=== PATIENT | male | born 1960 ===

== ENCOUNTER 2024-06-29 13:01 | Inpatient (IN) | payer MEDICARE ==
[2024-06-29] MEDS: ONDANSETRON 4 MG/2 ML VIAL IVP STA (14:08)
[2024-06-29] MEDS: PANTOPRAZOLE 40 MG/10 ML VIAL IVP STA (14:08)
[2024-06-29] MEDS: SODIUM CHLORIDE 0.9% 1,000 ML IV STA (14:08)
[2024-06-29] MEDS: MORPHINE SULFATE 4 MG/ML SYRINGE IVP STA (14:09)
[2024-06-29 14:21] LABS: Basophils % (A) 0 %; Eosinophils % (A) 0 %; HCT 40.8 % (39.0-53.0); HGB 13.8 gm/dL (13.0-17.5); Lymphocytes # (A) 0.9 k/uL (1.0-4.8); Lymphocytes % (A) 8 %; MCH 31.4 pg (25.0-35.0); MCV 92.4 fL (80.0-100.0); Mean Platelet Volume 7.4; Monocytes # (A) 0.7 k/uL (0-1.0); Monocytes % (A) 6 %; Neutrophils # (A) 8.9 k/uL (1.3-7.7); Neutrophils % (A) 84 %; Platelet Count 184 k/uL (150-450); RBC 4.41 m/uL (4.30-5.90); RDW 13.3 % (11.5-15.5); WBC 10.7 k/uL (3.8-10.6)
[2024-06-29 14:34] LABS: ALT 45 U/L (4-49); African American GFR (CKD) >90 (>60 ml/min/1.73 sqM); Amylase 82 U/L (30-110); Anion Gap 14 mmol/L; Blood Urea Nitrogen 16 mg/dL (9-20); Calcium 8.6 mg/dL (8.4-10.2); Carbon Dioxide 20 mmol/L (22-30); Chloride 103 mmol/L (98-107); Glucose 123 mg/dL (74-99); Lipase 83 U/L (23-300); Non-African American GFR(CKD) >90 (>60 ml/min/1.73 sqM); Sodium 137 mmol/L (137-145); Total Bilirubin 1.5 mg/dL (0.2-1.3); Total Protein 7.8 g/dL (6.3-8.2)
[2024-06-29 14:38] LABS: AST 40 U/L (17-59); Albumin 4.4 g/dL (3.5-5.0); Alkaline Phosphatase 54 U/L (38-126); Potassium 4.3 mmol/L (3.5-5.1)
[2024-06-29 14:39] LABS: Prothrombin Time 10.7 sec (10.0-12.5)
[2024-06-29] MEDS: HYDROmorphone 1 MG/ML 1 ML SYRINGE IVP STA (15:49)
--- NOTE | 2024-06-29 16:07 | ED ---
General Adult HPI - General Source: family, RN notes reviewed, old records reviewed Mode of arrival: ambulatory Limitations: language barrier <Kelvin Ahuja - Last Filed: 06/29/24 16:10> <Peyton Lino - Last Filed: 06/29/24 18:45> - General Chief complaint: Nausea/Vomiting/Diarrhea Stated complaint: back/abd pain Time Seen by Provider: 06/29/24 13:30 - History of Present Illness Initial comments: Patient is a 63-year-old male who presents emergency department complaining of nausea and vomiting as well as abdominal pain. Symptoms have been ongoing for multiple days. Patient is primarily Polish-speaking and translator and interpreter is his daughter. Was seen at [facility] and received a thorough workup yesterday and told he may have some form of cancer but became concerned as he is still having abdominal pain today. Denies nausea or vomiting or diarrhea. Presents for further evaluation at this time. Originally did have back pain across the shoulder blades but that is resolved and is only having right sided abdominal discomfort. Symptoms are improved compared to yesterday. (Kelvin Ahuja) - Related Data Allergies Allergy/AdvReac Type Severity Reaction Status Date / Time No Known Allergies Allergy Verified 06/29/24 13:05 Review of Systems ROS Other: All systems not noted in ROS Statement are negative. <Kelvin Ahuja - Last Filed: 06/29/24 16:10> ROS Other: All systems not noted in ROS Statement are negative. <Peyton Lino - Last Filed: 06/29/24 18:45> ROS Statement: Those systems with pertinent positive or pertinent negative responses have been documented in the HPI. Review of Systems: CONST: Denies fever EYES: Denies blurry vision ENT: Denies nasal congestion C/V: Denies Chest pain RESP: Denies shortness of breath GI: Endorses abdominal pain : Denies dysuria SKIN: Denies rash. MSK: Denies joint pain. NEURO: Denies headache (Kelvin Ahuja) Past Medical History Smoking Status: Never smoker Past Alcohol Use History: Occasional Past Drug Use History: None Reported <Kelvin Ahuja - Last Filed: 06/29/24 16:10> General Exam Limitations: language barrier <Kelvin Ahuja - Last Filed: 06/29/24 16:10> Course Vital Signs 06/29/24 15:55 Pulse Rate 83 Respiratory 18 Rate Blood Pressure 130/80 O2 Sat by Pulse 95 Oximetry Medical Decision Making - Lab Data Result diagrams: 06/29/24 13:46 06/29/24 13:46 - EKG Data -: EKG Interpreted by Me <Kelvin Ahuja - Last Filed: 06/29/24 16:10> - Lab Data Result diagrams: 06/29/24 13:46 06/29/24 13:46 <Peyton Lino Noemi - Last Filed: 06/29/24 18:45> - Medical Decision Making Was pt. sent in by a medical professional or institution (, PA, INDUSTRIAL ENG, urgent care, hospital, or group home...) When possible be specific @ -No Did you speak to anyone other than the patient for history (EMS, parent, family, police, friend...)? What history was obtained from this source @ -Patient's daughter and family primary retirement officer for the patient. Did you review nursing and triage notes (agree or disagree)? Why? @ -I reviewed and agree with nursing and triage notes Were old charts reviewed (outside hosp., previous admission, EMS record, old EKG, old radiological studies, urgent care reports/EKG's, group home records)? Report findings @ -Reviewed paperwork and records from [facility] from June 28, 2020 for which we obtained which showed CT angiogram negative for any aortic injury or acute abdominal process. Patient does have multiple pulmonary nodules with concern for malignancy. Reviewed EKG and compared to the today's which revealed no obvious dynamic changes. Differential Diagnosis (chest pain, altered mental status, abdominal pain women, abdominal pain men, vaginal bleeding, weakness, fever, dyspnea, syncope, headache, dizziness, GI bleed, back pain, seizure, CVA, palpatations, mental health, musculoskeletal)? @ -Differential Abdominal Pain Men: Appendicitis, cholecystitis, diverticulosis, ischemic bowel, pancreatitis, hepatitis, UTI, gastroenteritis, AAA, incarcerated hernia, bowel obstruction, constipation, inflammatory bowel, hepatitis, peptic ulcer disease, splenic inf arction, perforated viscus, testicular torsion, this is not meant to be an all- inclusive list EKG interpreted by me (3pts min.). @ -As above X-rays interpreted by me (1pt min.). @ -Pending CT interpreted by me (1pt min.). @ -None done U/S interpreted by me (1pt. min.). @ -Pending What testing was considered but not performed or refused? (CT, X-rays, U/S, labs)? Why? @ -None What meds were considered but not given or refused? Why? @ -None Did you discuss the management of the patient with other professionals (professionals i.e. DrAddie, PA, INDUSTRIAL ENG, lab, RT, psych nurse, social service assistant, strip polisher, te acher, patient transport officer, manager of case)? Give summary @ -No Was smoking cessation discussed for >3mins.? @ -No Was critical care preformed (if so, how long)? @ -No Were there social determinants of health that impacted care today? How? (Homelessness, low income, unemployed, alcoholism, drug addiction, transportation, low edu. Level, literacy, decrease access to med. care, custodial, rehab)? @ -No Was there de-escalation of care discussed even if they declined (Discuss DNR or withdrawal of care, Hospice)? DNR status @ -No What co-morbidities impacted this encounter? (DM, HTN, Smoking, COPD, CAD, C ancer, CVA, ARF, Chemo, Hep., AIDS, mental health diagnosis, sleep apnea, morbid obesity)? @ -Cardiac bypass Was patient admitted / discharged? Hospital course, mention meds given and route, prescriptions, significant lab abnormalities, going to OR and other pertinent info. @ -Patient presents with abdominal pain. Has been ongoing for 4 days. Was seen yesterday at [facility] we will obtain transfer paperwork for evaluation. CT a of the aorta was obtained at that time showed no obvious a ortic injury. Did show multiple pulmonary nodules with concern for malignancy. We will repeat abdominal laboratory studies as well as ultrasound of gallbladder and atypical ACS evaluation, however I do not believe that CT imaging is required at this time as he just received it yesterday and his symptoms are improved. He was in agreement this plan. Vitals are within acceptable limits. He will be given IV fluids, analgesia, Zofran, Protonix. EKG shows no signs of acute ischemia. Laboratory studies are remarkable for slight lactic acidosis of 2.6 likely secondary to dehydration as well as a undetectable troponin. Imaging is pending at this time. Patient signed out to Dr. Lino pending results of imaging. Undiagnosed new problem with uncertain prognosis? @ -No Drug Therapy requiring intensive monitoring for toxicity (Heparin, Nitro, Insulin, Cardizem)? @ -No Were any procedures done? @ -No (Kelvin Ahuja) Was patient admitted / discharged? Hospital course, mention meds given and route, prescriptions, significant lab abnormalities, going to OR and other pertinent info. @ -Patient was signed out to me pending ultrasound. Ultrasound does demonstr ate signs concerning for acalculous cholecystitis. This is discussed with the patient. He is finally comfortable after the dose of Dilaudid. I did discuss the case with Dr. Cherry. Patient will be admitted for observation with antibiotics. Patient was agreeable to this. Admitted to the floor in stable condition Undiagnosed new problem with uncertain prognosis? @ -Yes Drug Therapy requiring intensive monitoring for toxicity (Heparin, Nitro, Insulin, Cardizem)? @ -No Were any procedures done? @ -No Diagnosis/symptom? @ -Acute epigastric abdominal pain, acute cholecystitis Acute, or Chronic, or Acute on Chronic? @ -Acute Uncomplicated (without systemic symptoms) or Complicated (systemic symptoms)? @ -Complicated Side effects of treatment? @ -No Exacerbation, Progression, or Severe Exacerbation? @ -No Poses a threat to life or bodily function? How? (Chest pain, [place], [place], pneumonia, PE, COPD, DKA, ARF, appy, cholecystitis, CVA, Diverticulitis, Homicidal, Suicidal, threat to staff... and all critical care pts) @ -No (Peyton Lino) - Lab Data Lab Results 06/29/24 06/29/24 06/29/24 Range/Units 13:46 13:46 13:46 WBC 10.7 H (3.8-10.6) k/uL RBC 4.41 (4.30-5.90) m/uL Hgb 13.8 (13.0-17.5) gm/dL Hct 40.8 (39.0-53.0) % MCV 92.4 (80.0-100.0) fL MCH 31.4 (25.0-35.0) pg MCHC 34.0 (31.0-37.0) g/dL RDW 13.3 (11.5-15.5) % Plt Count 184 (150-450) k/uL MPV 7.4 Neutrophils % 84 % Lymphocytes % 8 % Monocytes % 6 % Eosinophils % 0 % Basophils % 0 % Neutrophils # 8.9 H (1.3-7.7) k/uL Lymphocytes # 0.9 L (1.0-4.8) k/uL Monocytes # 0.7 (0-1.0) k/uL Eosinophils # 0.0 (0-0.7) k/uL Basophils # 0.0 (0-0.2) k/uL PT 10.7 (10.0-12.5) sec INR 1.0 (<1.2) APTT 26.0 (22.0-30.0) sec Sodium 137 (137-145) mmol/L Potassium 4.3 (3.5-5.1) mmol/L Chloride 103 (98-107) mmol/L Carbon Dioxide 20 L (22-30) mmol/L Anion Gap 14 mmol/L BUN 16 (9-20) mg/dL Creatinine 0.85 (0.66-1.25) mg/dL Est GFR (CKD-EPI)AfAm >90 (>60 ml/min/1.73 sqM) Est GFR (CKD-EPI)NonAf >90 (>60 ml/min/1.73 sqM) Glucose 123 H (74-99) mg/dL Lactic Ac Sepsis Rflx Plasma Lactic Acid Jesus Alberto (0.7-2.0) mmol/L Calcium 8.6 (8.4-10.2) mg/dL Total Bilirubin 1.5 H (0.2-1.3) mg/dL AST 40 (17-59) U/L ALT 45 (4-49) U/L Alkaline Phosphatase 54 (38-126) U/L Troponin I (0.000-0.034) ng/mL Total Protein 7.8 (6.3-8.2) g/dL Albumin 4.4 (3.5-5.0) g/dL Amylase 82 (30-110) U/L Lipase 83 (23-300) U/L 06/29/24 06/29/24 06/29/24 Range/Units 13:46 13:46 15:51 WBC (3.8-10.6) k/uL RBC (4.30-5.90) m/uL Hgb (13.0-17.5) gm/dL Hct (39.0-53.0) % MCV (80.0-100.0) fL MCH (25.0-35.0) pg MCHC (31.0-37.0) g/dL RDW (11.5-15.5) % Plt Count (150-450) k/uL MPV Neutrophils % % Lymphocytes % % Monocytes % % Eosinophils % % Basophils % % Neutrophils # (1.3-7.7) k/uL Lymphocytes # (1.0-4.8) k/uL Monocytes # (0-1.0) k/uL Eosinophils # (0-0.7) k/uL Basophils # (0-0.2) k/uL PT (10.0-12.5) sec INR (<1.2) APTT (22.0-30.0) sec Sodium (137-145) mmol/L Potassium (3.5-5.1) mmol/L Chloride (98-107) mmol/L Carbon Dioxide (22-30) mmol/L Anion Gap mmol/L BUN (9-20) mg/dL Creatinine (0.66-1.25) mg/dL Est GFR (CKD-EPI)AfAm (>60 ml/min/1.73 sqM) Est GFR (CKD-EPI)NonAf (>60 ml/min/1.73 sqM) Glucose (74-99) mg/dL Lactic Ac Sepsis Rflx Y Plasma Lactic Acid Jesus Alberto 2.6 H* (0.7-2.0) mmol/L Calcium (8.4-10.2) mg/dL Total Bilirubin (0.2-1.3) mg/dL AST (17-59) U/L ALT (4-49) U/L Alkaline Phosphatase (38-126) U/L Troponin I <0.012 (0.000-0.034) ng/mL Total Protein (6.3-8.2) g/dL Albumin (3.5-5.0) g/dL Amylase (30-110) U/L Lipase (23-300) U/L - EKG Data EKG Comments: 12-lead Electrocardiogram Interpretation Note EKG was reviewed and interpreted by myself. 12-lead ECG performed at 1346 is interpreted by me as revealing normal sinus rhythm at a rate of 74 beats per minute. [place] is normal. OH interval is 142 ms, QRS duration 79 ms, QTc is 3 to 93 ms.. There were no ST or T wave abnormalities to suggest myocardial ischemia or injury. R wave progression across the precordium was satisfactory. By my interpretation this EKG is non-diagnostic for acute ischemia. Compared today's EKG with EKG from [facility] from 06/28/2024 with no obvious acute dynamic changes. (Kelvin Ahuja) Disposition <Kelvin Ahuja - Last Filed: 06/29/24 16:10> Is patient prescribed a controlled substance at d/c from ED?: No Time of Disposition: 18:39 Decision to Admit Reason: Admit from EC Decision Date: 06/29/24 Decision Time: 18:39 <Peyton Lino - Last Filed: 06/29/24 18:45> Clinical Impression: Cholecystitis, Epigastric pain Disposition: ADMITTED IP TO THIS HOSP Condition: Stable Referrals: RONALD CANCINO MD [Primary Care Provider] - 1-2 days
--- NOTE | 2024-06-29 16:31 | US ---
EXAMINATION TYPE: US gallbladder DATE OF EXAM: 06/29/2024 COMPARISON: NONE CLINICAL INDICATION: Male, 63 years old with history of abd pain; Pain TECHNIQUE: Grayscale and color Doppler imaging of the right upper quadrant was performed. FINDINGS: EXAM MEASUREMENTS: Liver Length: 14.8 cm Gallbladder Wall: 0.2 cm CBD: 0.5 cm Right Kidney: 9.1 x 4.6 x 5.3 cm VP DIRECTOR OF FINANCE NOTES:Suboptimal due to bowel gas Pancreas: Obscured by bowel gas Liver: Scanned through ribs. Echogenic in appearance. Hypoechoic area seen adjacent to GB = 2.3 x 1.1 cm Gallbladder: Enlarged in size - 11.2 cm. No stone visualized at time of scan. Evidence for sonographic Rowley's sign: neg CBD: limited visualization, small portion seen due to bowel gas Right Kidney: No hydronephrosis or masses seen IMPRESSION: 1. Distended gallbladder with small focus of pericholecystic fluid but no gallstone or wall thickenin g. There is no biliary ductal dilatation. Possible acute acalculous cholecystitis 2. Fatty liver. [facility], , 06/29/2024 4:29 PM
--- NOTE | 2024-06-29 17:52 | XR ---
EXAMINATION TYPE: XR chest 2V DATE OF EXAM: 06/29/2024 CLINICAL HISTORY: Pain TECHNIQUE: Frontal and lateral views of the chest are obtained. COMPARISON: None FINDINGS: There is pulmonary venous congestion with small right-sided pleural effusion and mild cardi omegaly. Correlate for mild congestive failure. The osseous structures are intact. IMPRESSION: There is pulmonary venous congestion with small right-sided pleural effusion and mild ca rdiomegaly. Correlate for mild congestive failure. [facility], , 06/29/2024 5:50 PM
[2024-06-29] MEDS ORDERED: NALOXONE 0.4 MG/ML 1 ML VIAL IV PRN (18:39)
[2024-06-29] MEDS: PIPERACILLIN-TAZOBACTAM 3.375 GM in SODIUM CHLORIDE 0.9% 100 ML IVPB SCH ×2 (19:09→19:11)
[2024-06-29] MEDS: SODIUM CHLORIDE 0.9% 1,000 ML IV SCH (19:09)
[2024-06-30 01:20] LABS: Appearance,Urine Clear (Clear); Bilirubin,Urine Negative (Negative); Blood,Urine Negative (Negative); Color,Urine Yellow; Glucose,Urine (UA) Negative (Negative); Ketones,Urine Negative (Negative); Leukocyte Esterase,Urine Negative (Negative); Nitrite,Urine Negative (Negative); Protein,Urine Trace (Negative); Specific Gravity,Urine 1.031 (1.001-1.035); Urobilinogen,Urine <2.0 mg/dL (<2.0)
[2024-06-30] MEDS: HYDROmorphone 1 MG/ML 1 ML SYRINGE IVP PRN (02:42)
[2024-06-30 09:06] LABS: Blood Urea Nitrogen 16.9 mg/dL (9.0-27.0); Calcium 8.2 mg/dL (8.7-10.3); Carbon Dioxide 21.4 mmol/L (21.6-31.8); Chloride 106 mmol/L (96-109); Glucose 124 mg/dL (70-110); Potassium 3.9 mmol/L (3.5-5.5); Sodium 138 mmol/L (135-145)
[2024-06-30 10:22] LABS: Basophils # (A) 0.03 X 10*3/uL (0.00-0.10); Basophils % (A) 0.2 %; Eosinophils # (A) 0.01 X 10*3/uL (0.04-0.35); Eosinophils % (A) 0.1 %; HCT 38.8 % (39.6-50.0); HGB 12.8 g/dL (13.0-17.0); Lymphocytes # (A) 0.71 X 10*3/uL (0.90-5.00); Lymphocytes % (A) 5.9 %; MCH 31.1 pg (27.0-32.0); MCV 94.2 FL (80.0-97.0); Mean Platelet Volume 10.5 FL (9.5-12.2); Monocytes # (A) 1.32 X 10*3/uL (0.20-1.00); Monocytes % (A) 10.9 %; NRBC Per 100 WBC 0 X 10*3/uL (0.00-0.01); Neutrophils # (A) 9.96 X 10*3/uL (1.80-7.70); Neutrophils % (A) 82.2 %; Platelet Count 158 X 10*3/uL (140-440); RBC 4.12 X 10*6/uL (4.40-5.60); RDW 14.3 % (11.5-14.5); WBC 12.11 X 10*3/uL (4.50-10.00)
--- NOTE | 2024-06-30 11:21 | P.GSHP ---
History of Present Illness H&P Date: 06/30/24 CHIEF COMPLAINT: Abdominal pain HISTORY OF PRESENT ILLNESS: This is a 63-year-old male who presented to the hospital with complaints of nausea vomiting and right upper quadrant abdominal pain for multiple days. Patient is primarily Nepalese-speaking. Patient is tender in the right upper quadrant. He had a gallbladder ultrasound completed that reported distended gallbladder with small pericholecystic fluid and concerns for acalculous cholecystitis. Patient admitted to surgical service. Also note per chart that at [facility] he had received a workup and was told that he had some form of cancer. His last dose of Brilinta was yesterday. Patient denies any chest pain or shortness of breath. PAST MEDICAL HISTORY: Hypertension, hyperlipidemia PAST SURGICAL HISTORY: History of CABG 6 years ago MEDICATIONS: See below ALLERGIES: See below SOCIAL HISTORY: No illicit drug use. REVIEW OF SYSTEMS: CONSTITUTIONAL: Denies fever or chills. HEENT: Denies blurred vision, vision changes, or eye pain. Denies hemoptysis CARDIOVASCULAR: Denies chest pain or pressure. RESPIRATORY: No shortness of breath. GASTROINTESTINAL: See HPI for pertinent findings HEMATOLOGIC: Denies bleeding disorders. GENITOURINARY: Denies any blood in urine or increased urinary frequency. SKIN: Denies pruitis. Denies rash. PHYSICAL EXAM: VITAL SIGNS: Reviewed GENERAL: Well-developed in no acute distress. HEENT: No sclera icterus. Extraocular movements grossly intact. Moist buccal mucosa. Head is atraumatic, normocephalic. No nasal drainage. ABDOMEN: Soft. Nondistended. Tenderness with palpation to the right upper quadrant NEUROLOGIC: Alert and oriented. Cranial nerves II through XII grossly intact. Extremities: No edema LABORATORY DATA: WBC 12.11 Hgb 12.8 platelets 158 Sodium 138 potassium 3.9 creatinine is 1.0 Lactic acid 2.6 down to 1.7 Total bili 1.5 LFTs normal lipase 83 IMAGING: Gallbladder ultrasound reports distended gallbladder with small focus of pericholecystic fluid but no gallstone or wall thickening. There is no biliary ductal dilatation. Possible acute acalculous cholecystitis. Fatty liver. Chest x-ray reports pulmonary venous congestion with small right-sided pleural effusion and mild cardiomegaly. Correlate for mild CHF. ASSESSMENT: 1. Acute acalculous cholecystitis. Gallbladder ultrasound reported distended gallbladder with small focus of pericholecystic fluid PLAN: -Patient scheduled for laparoscopic cholecystectomy today with Dr. Cherry -Keep patient n.p.o. -Continue antibiotics -Continue pain medication and antiemetics -Medicine service consulted for medical management. Discussed case with Dr. Clark, who has cleared patient for surgery and reported patient as moderate risk for surgery. -Continue to hold Brilinta Physician Telegraph Inspector note has been reviewed by physician. Signing provider agrees with the documented findings, assessment, and plan of care. Past Medical History Past Medical History: Hypertension History of Any Multi-Drug Resistant Organisms: None Reported Past Surgical History: Coronary Bypass/CABG Smoking Status: Never smoker Past Alcohol Use History: Occasional Past Drug Use History: None Reported Medications and Allergies Home Medications Medication Instructions Recorded Confirmed Type Atorvastatin [Lipitor] 40 mg PO DAILY 06/29/24 06/29/24 History Famotidine [Pepcid] 20 mg PO BID 06/29/24 06/29/24 History Losartan Potassium 100 mg PO DAILY 06/29/24 06/29/24 History Metoprolol Tartrate [Lopressor] 50 mg PO BID 06/29/24 06/29/24 History Naproxen [Naprosyn] 500 mg PO BID 06/29/24 06/29/24 History Ticagrelor [Brilinta] 90 mg PO BID 06/29/24 06/29/24 History amLODIPine [Norvasc] 5 mg PO DAILY 06/29/24 06/29/24 History Allergies Allergy/AdvReac Type Severity Reaction Status Date / Time No Known Allergies Allergy Verified 06/29/24 19:44 Surgical - Exam Vital Signs Pulse Resp BP Pulse Ox 83 18 130/80 95 06/29/24 15:55 06/29/24 15:55 06/29/24 15:55 06/29/24 15:55 Results - Labs 06/30/24 04:56 06/30/24 04:56 Abnormal Lab Results - Last 24 Hours (Table) 06/29/24 06/29/24 06/29/24 Range/Units 00:37 13:46 13:46 WBC 10.7 H (3.8-10.6) k/uL RBC (4.40-5.60) X 10*6/uL Hgb (13.0-17.0) g/dL Hct (39.6-50.0) % Immature Gran # (0.00-0.04) X 10*3/uL Neutrophils # 8.9 H (1.3-7.7) k/uL Lymphocytes # 0.9 L (1.0-4.8) k/uL Monocytes # (0.20-1.00) X 10*3/uL Eosinophils # (0.04-0.35) X 10*3/uL Carbon Dioxide 20 L (22-30) mmol/L Glucose 123 H (74-99) mg/dL Plasma Lactic Acid Jesus Alberto (0.7-2.0) mmol/L Calcium (8.7-10.3) mg/dL Total Bilirubin 1.5 H (0.2-1.3) mg/dL Urine Protein Trace H (Negative) 06/29/24 06/30/24 06/30/24 Range/Units 13:46 04:56 04:56 WBC 12.11 H (3.8-10.6) k/uL RBC 4.12 L (4.40-5.60) X 10*6/uL Hgb 12.8 L (13.0-17.0) g/dL Hct 38.8 L (39.6-50.0) % Immature Gran # 0.08 H (0.00-0.04) X 10*3/uL Neutrophils # 9.96 H (1.3-7.7) k/uL Lymphocytes # 0.71 L (1.0-4.8) k/uL Monocytes # 1.32 H (0.20-1.00) X 10*3/uL Eosinophils # 0.01 L (0.04-0.35) X 10*3/uL Carbon Dioxide 21.4 L (22-30) mmol/L Glucose 124 H (74-99) mg/dL Plasma Lactic Acid Jesus Alberto 2.6 H* (0.7-2.0) mmol/L Calcium 8.2 L (8.7-10.3) mg/dL Total Bilirubin (0.2-1.3) mg/dL Urine Protein (Negative) Diabetes panel 06/29/24 06/30/24 Range/Units 13:46 04:56 Sodium 137 138 (137-145) mmol/L Potassium 4.3 3.9 (3.5-5.1) mmol/L Chloride 103 106 (98-107) mmol/L Carbon Dioxide 20 L 21.4 L (22-30) mmol/L BUN 16 16.9 (9-20) mg/dL Creatinine 0.85 1.0 (0.66-1.25) mg/dL Glucose 123 H 124 H (74-99) mg/dL Calcium 8.6 8.2 L (8.4-10.2) mg/dL AST 40 (17-59) U/L ALT 45 (4-49) U/L Alkaline Phosphatase 54 (38-126) U/L Total Protein 7.8 (6.3-8.2) g/dL Albumin 4.4 (3.5-5.0) g/dL Calcium panel 06/29/24 06/30/24 Range/Units 13:46 04:56 Calcium 8.6 8.2 L (8.4-10.2) mg/dL Albumin 4.4 (3.5-5.0) g/dL Pituitary panel 06/29/24 06/30/24 Range/Units 13:46 04:56 Sodium 137 138 (137-145) mmol/L Potassium 4.3 3.9 (3.5-5.1) mmol/L Chloride 103 106 (98-107) mmol/L Carbon Dioxide 20 L 21.4 L (22-30) mmol/L BUN 16 16.9 (9-20) mg/dL Creatinine 0.85 1.0 (0.66-1.25) mg/dL Glucose 123 H 124 H (74-99) mg/dL Calcium 8.6 8.2 L (8.4-10.2) mg/dL Adrenal panel 06/29/24 06/30/24 Range/Units 13:46 04:56 Sodium 137 138 (137-145) mmol/L Potassium 4.3 3.9 (3.5-5.1) mmol/L Chloride 103 106 (98-107) mmol/L Carbon Dioxide 20 L 21.4 L (22-30) mmol/L BUN 16 16.9 (9-20) mg/dL Creatinine 0.85 1.0 (0.66-1.25) mg/dL Glucose 123 H 124 H (74-99) mg/dL Calcium 8.6 8.2 L (8.4-10.2) mg/dL Total Bilirubin 1.5 H (0.2-1.3) mg/dL AST 40 (17-59) U/L ALT 45 (4-49) U/L Alkaline Phosphatase 54 (38-126) U/L Total Protein 7.8 (6.3-8.2) g/dL Albumin 4.4 (3.5-5.0) g/dL
--- NOTE | 2024-06-30 12:53 | P.CONS ---
History of Present Illness - Reason for Consult Consult date: 06/30/24 Medical management - History of Present Illness History of present illness; patient 63-year-old gentleman who was brought to the ER for abdominal pain. Patient was having abdominal pain for the last few days. Patient has been complain of nausea and vomiting. Patient went to [facility] where he was worked up and later discharged to follow-up outpatient with PCP. Patient continued to have abdominal pain there was no complaint of fever or chills. There was no complaint of lightheadedness dizziness. Patient denies any chest pain or shortness of breath. Because of his abdominal pain, patient came to [facility] Initial lab work done in the ER showed WBC 10.7, hemoglobin 13.8, platelet count 184, sodium 137, potassium 4.3, BUN 16, creatinine 0.85, lactate 2.6, bilirubin 1.5, AST 40, ALT 45 troponin 0.012 Urine negative for infection Ultrasound gallbladder done showed distended gallbladder with small focus of Adalid cholecystic fluid but no gallstones or wall thickening possible acute calculus cholecystitis EKG done in the ER showed heart rate of 74, no ST segment elevation or d epression seen, no T-wave inversions seen. Patient admitted to internal medicine service REVIEW OF SYSTEMS: CONSTITUTIONAL: No fever, no malaise, no fatigue. HEENT: No recent visual problems or hearing problems. Denied any sore throat. CARDIOVASCULAR: No chest pain, orthopnea, PND, no palpitations, no syncope. PULMONARY: No shortness of breath, no cough, no hemoptysis. GASTROINTESTINAL: As mentioned above NEUROLOGICAL: No headaches, no weakness, no numbness. HEMATOLOGICAL: Denies any bleeding or petechiae. GENITOURINARY: Denies any burning micturition, frequency, or urgency. MUSCULOSKELETAL/RHEUMATOLOGICAL: Denies any joint pain, swelling, or any muscle pain. ENDOCRINE: Denies any polyuria or polydipsia. The rest of the 14-point review of systems is negative. PHYSICAL EXAMINATION: GENERAL: The patient is alert and oriented x3, not in any acute distress. Well developed, well nourished. HEENT: Pupils are round and equally reacting to light. EOMI. No scleral icterus. No conjunctival pallor. Normocephalic, atraumatic. No pharyngeal erythema. No thyromegaly. CARDIOVASCULAR: S1 and S2 present. No murmurs, rubs, or gallops. PULMONARY: Chest is clear to auscultation, no wheezing or crackles. ABDOMEN: Soft, nontender, nondistended, normoactive bowel sounds. No palpable organomegaly. MUSCULOSKELETAL: No joint swelling or deformity. EXTREMITIES: No cyanosis, clubbing, or pedal edema. NEUROLOGICAL: Gross neurological examination did not reveal any focal deficits. SKIN: No rashes. Assessment and plan Acute acalculous cholecystitis Abdominal pain Nausea and vomiting History of coronary artery disease History of hypertension Monitor vital signs Monitor CBC Monitor CMP Continue pain management Continue antiemetics continue IV fluids. Patient has intermediate risk of postoperative complications from cholecystectomy Labs and medication were reviewed.. Continue same treatment. Continue with symptomatic treatment. Resume home medication. Monitor labs and vitals. DVT and GI prophylaxis. Further recommendations as per clinical course of the patient Dictation was produced using [employer] dictation software. please excuse any grammatical, word or spelling errors. Past Medical History Past Medical History: Hypertension History of Any Multi-Drug Resistant Organisms: None Reported Past Surgical History: Coronary Bypass/CABG Smoking Status: Never smoker Past Alcohol Use History: Occasional Past Drug Use History: None Reported Medications and Allergies Home Medications Medication Instructions Recorded Confirmed Type Atorvastatin [Lipitor] 40 mg PO DAILY 06/29/24 06/29/24 History Famotidine [Pepcid] 20 mg PO BID 06/29/24 06/29/24 History Losartan Potassium 100 mg PO DAILY 06/29/24 06/29/24 History Metoprolol Tartrate [Lopressor] 50 mg PO BID 06/29/24 06/29/24 History Naproxen [Naprosyn] 500 mg PO BID 06/29/24 06/29/24 History Ticagrelor [Brilinta] 90 mg PO BID 06/29/24 06/29/24 History amLODIPine [Norvasc] 5 mg PO DAILY 06/29/24 06/29/24 History Allergies Allergy/AdvReac Type Severity Reaction Status Date / Time No Known Allergies Allergy Verified 06/29/24 19:44 Physical Exam Vitals: Vital Signs Temp Pulse Pulse Resp BP BP Pulse Ox 06/30/24 06:40 98.1 F 83 16 123/69 93 L 06/30/24 02:50 142/84 06/30/24 02:20 85 15 95 06/29/24 23:47 98.4 F 06/29/24 23:27 99.7 F H 87 20 130/72 95 06/29/24 18:46 77 16 132/75 95 06/29/24 15:55 83 18 130/80 95 Intake and Output 06/29/24 06/30/24 06/30/24 22:59 06:59 14:59 Other: # Voids 2 Weight 81.647 kg Results CBC & Chem 7: 06/30/24 04:56 06/30/24 04:56 Labs: Abnormal Lab Results - Last 24 Hours (Table) 06/29/24 06/29/24 06/29/24 Range/Units 00:37 13:46 13:46 WBC 10.7 H (3.8-10.6) k/uL Neutrophils # 8.9 H (1.3-7.7) k/uL Lymphocytes # 0.9 L (1.0-4.8) k/uL Carbon Dioxide 20 L (22-30) mmol/L Glucose 123 H (74-99) mg/dL Plasma Lactic Acid Jesus Alberto (0.7-2.0) mmol/L Calcium (8.7-10.3) mg/dL Total Bilirubin 1.5 H (0.2-1.3) mg/dL Urine Protein Trace H (Negative) 06/29/24 06/30/24 Range/Units 13:46 04:56 WBC (3.8-10.6) k/uL Neutrophils # (1.3-7.7) k/uL Lymphocytes # (1.0-4.8) k/uL Carbon Dioxide 21.4 L (22-30) mmol/L Glucose 124 H (74-99) mg/dL Plasma Lactic Acid Jesus Alberto 2.6 H* (0.7-2.0) mmol/L Calcium 8.2 L (8.7-10.3) mg/dL Total Bilirubin (0.2-1.3) mg/dL Urine Protein (Negative)
[2024-06-30] MEDS: METOPROLOL TARTRATE 50 MG TAB PO SCH (14:07)
[2024-06-30] MEDS: amLODIPine 5 MG TAB PO SCH (14:07)
[2024-06-30] MEDS ORDERED: LORazepam 2 MG/ML INJ IV PRN ×3 (18:29)
[2024-06-30] MEDS ORDERED: LORazepam 1 MG TAB PO PRN ×4 (18:29)
[2024-06-30] MEDS ORDERED: LORazepam 0.5 MG TAB PO PRN (18:29)
[2024-06-30] MEDS: ACETAMINOPHEN TAB 325 MG TAB PO PRN (18:55)
[2024-06-30] MEDS: FAMOTIDINE 20 MG TAB PO SCH (20:50)
[2024-07-01 04:29] LABS: Basophils % (A) 0 %; Eosinophils # (A) 0.2 k/uL (0-0.7); Eosinophils % (A) 2 %; HCT 36.5 % (39.0-53.0); HGB 12.5 gm/dL (13.0-17.5); Lymphocytes # (A) 0.8 k/uL (1.0-4.8); Lymphocytes % (A) 7 %; MCH 31.4 pg (25.0-35.0); MCHC 34.1 g/dL (31.0-37.0); Mean Platelet Volume 7.6; Monocytes # (A) 0.9 k/uL (0-1.0); Monocytes % (A) 8 %; Neutrophils # (A) 9.1 k/uL (1.3-7.7); Neutrophils % (A) 81 %; Platelet Count 147 k/uL (150-450); RBC 3.97 m/uL (4.30-5.90); RDW 13.1 % (11.5-15.5); WBC 11.2 k/uL (3.8-10.6)
[2024-07-01 04:48] LABS: African American GFR (CKD) >90 (>60 ml/min/1.73 sqM); Anion Gap 4 mmol/L; Blood Urea Nitrogen 15 mg/dL (9-20); Calcium 7.8 mg/dL (8.4-10.2); Carbon Dioxide 25 mmol/L (22-30); Chloride 106 mmol/L (98-107); Glucose 117 mg/dL (74-99); Non-African American GFR(CKD) >90 (>60 ml/min/1.73 sqM); Potassium 3.5 mmol/L (3.5-5.1); Sodium 135 mmol/L (137-145)
[2024-07-01] MEDS: ATORVASTATIN 40 MG TAB PO SCH (09:28)
[2024-07-01] MEDS: LOSARTAN 50 MG TAB PO SCH (09:28)
[2024-07-01] MEDS: IV FLUID CONTINUATION 1,000 ML IV ONE (10:48)
[2024-07-01] MEDS: ONDANSETRON 4 MG/2 ML VIAL IVP PRN (11:09)
[2024-07-01] MEDS: DEXAMETHASONE SOD PHOSPHATE 4 MG/ML 1 ML VIAL IVP STA (11:13)
[2024-07-01] MEDS: HEPARIN SODIUM,PORCINE 5,000 UNIT/ML 1 ML VIAL SQ STA (11:14)
[2024-07-01] MEDS ORDERED: LIDOCAINE 4% LTA KIT (4 ML) TOPICAL ONE (11:16)
[2024-07-01] MEDS ORDERED: MIDAZOLAM 2 MG/2 ML VIAL ONE (11:16)
[2024-07-01] MEDS ORDERED: ROCURONIUM 10 MG/ML (5 ML VIAL) IV ONE (11:16)
[2024-07-01] MEDS ORDERED: LIDOCAINE 1% INJ 10MG/ML (20 ML MDV) ONE (11:16)
[2024-07-01] MEDS ORDERED: fentaNYL (PF) 50 MCG/ML 2 ML AMP ONE (11:16)
[2024-07-01] MEDS ORDERED: GLYCOPYRROLATE 0.2 MG/ML 2 ML VIAL ONE (11:16)
[2024-07-01] MEDS ORDERED: NEOSTIGMINE 1 MG/ML 10 ML VIAL ONE (11:16)
[2024-07-01] MEDS ORDERED: SUCCINYLCHOLINE CHLORIDE 200 MG/10 ML VIAL IV ONE (11:16)
[2024-07-01] MEDS ORDERED: KETOROLAC 15 MG/ML 1 ML VIAL ONE (11:16)
[2024-07-01] MEDS ORDERED: PROPOFOL 10 MG/ML 20 ML VIAL IV ONE (11:16)
[2024-07-01] MEDS: LIDOCAINE 1%-EPI 1:100,000 20 ML VIAL SQ ONE (11:44)
--- NOTE | 2024-07-01 12:13 | P.OP ---
Date of Procedure: 07/01/24 Preoperative Diagnosis: Acute cholecystitis Postoperative Diagnosis: Gangrenous cholecystitis Procedure(s) Performed: Laparoscopic cholecystectomy Anesthesia: LEONARD Surgeon: Richard Cherry Estimated Blood Loss (ml): 10 Pathology: other (Gallbladder) Condition: stable Disposition: PACU Operative Findings: Gangrenous cholecystitis Description of Procedure: The patient was placed on the operating table. The patient received a general endotracheal tube anesthesia. The patients abdomen was prepped and draped in the usual sterile fashion. Through an infraumbilical stab incision, the fascia of the anterior abdominal wall was grasped with a pair of Kochers and then the Veress needle was placed in the peritoneal cavity. Position of the Veress needle was confirmed with positive drop test. The abdomen was then insufflated. After adequate insufflation, the 10 mm trocar was placed in the peritoneal cavity. Following this the laparoscope was placed in the peritoneal cavity. The patient was placed in the head-up, right side up position and then a 5 mm trocar was placed in the right lateral and right subcostal position under direct visualization. A 8 mm trocar was placed in the epigastric position. The gallbladder was grasped in the fundus and infundibulum. Traction on the gallbladder was placed in the lateral and the cephalad positions. The triangle of Calot was visualized.. The cystic duct was bluntly dissected until the union of the cystic duct and common bile duct was seen. A critical view of safety was achieved. The cystic duct was then divided and sealed with the Harmonic scissors. A PDS Endoloop was then placed throughout the cystic duct stump. The cystic artery divided and sealed with the Harmonic scissors. The gallbladder was then removed from the liver bed using Harmonic scissors. The gallbladder was then extracted through the epigastric port site. Operative field was checked for any bleeding spots and Harmonic scissors was used to coagulate the liver bed. The abdomen was irrigated. T he trocars were removed. The skin was closed using interrupted 3-0 Vicryl suture. Dermabond dressing were applied. The patient tolerated the procedure well.
[2024-07-01] MEDS: ALBUTEROL NEBULIZED 2.5 MG/3 ML INHALATION STA (12:40)
[2024-07-01] MEDS: HYDROmorphone 0.5 MG/0.5 ML SYRINGE IVP PRN (12:41)
[2024-07-01] MEDS: LACTATED RINGERS 1,000 ML IV SCH (16:50)
--- NOTE | 2024-07-02 06:32 | P.PN ---
Subjective Progress Note Date: 07/01/24 - Reason for Consult Consult date: 06/30/24 Medical management - History of Present Illness History of present illness; patient 63-year-old gentleman who was brought to the ER for abdominal pain. Patient was having abdominal pain for the last few days. Patient has been complain of nausea and vomiting. Patient went to [facility] where he was worked up and later discharged to follow-up outpatient with PCP. Patient continued to have abdominal pain there was no complaint of fever or chills. There was no complaint of lightheadedness dizziness. Patient denies any chest pain or shortness of breath. Because of his abdominal pain, patient came to [facility] Initial lab work done in the ER showed WBC 10.7, hemoglobin 13.8, platelet count 184, sodium 137, potassium 4.3, BUN 16, creatinine 0.85, lactate 2.6, bilirubin 1.5, AST 40, ALT 45 troponin 0.012 Urine negative for infection Ultrasound gallbladder done showed distended gallbladder with small focus of Adalid cholecystic fluid but no gallstones or wall thickening possible acute calculus cholecystitis EKG done in the ER showed heart rate of 74, no ST segment elevation or depression seen, no T-wave inversions seen. Patient admitted to internal medicine service 07/01/2024 Patient is seen in follow-up currently n.p.o. as general surgery plans on cholecystectomy today. Patient remains free of chest pain or shortness of breath. Patient denies nausea or vomiting continues with diffuse abdominal pain at this time. Family at the bedside with questions and concerns answered to the best of her ability. Patient and family speak mostly Cypriot. Patient is willing to proceed with surgery and will await official report. Patient continues to have low-grade temps and white count is mildly elevated. Plan to proceed with surgery this afternoon. Review of systems: Constitutional: No reports of fatigue, fever, or chills Cardiovascular: No reports of chest pain or palpitations Respiratory: No reports of shortness of breath or cough GI: No reports of nausea, vomiting, or diarrhea, reports diffuse abdominal pain : No reports of dysuria or retention Neurovascular: No reports of weakness or numbness All medications have been reviewed PHYSICAL EXAMINATION: GENERAL: The patient is alert and oriented x3, not in any acute distress. Well developed, well nourished. Language barrier noted HEENT: Pupils are round and equally reacting to light. EOMI. No scleral icterus. No conjunctival pallor. Normocephalic, atraumatic. No pharyngeal erythema. No thyromegaly. CARDIOVASCULAR: S1 and S2 present. No murmurs, rubs, or gallops. PULMONARY: Chest is clear to auscultation, no wheezing or crackles. ABDOMEN: Soft, nontender, nondistended, normoactive bowel sounds. No palpable organomegaly. MUSCULOSKELETAL: No joint swelling or deformity. EXTREMITIES: No cyanosis, clubbing, or pedal edema. NEUROLOGICAL: Gross neurological examination did not reveal any focal deficits. SKIN: No rashes. Assessment: Acute acalculous cholecystitis scheduled to undergo cholecystectomy today Leukocytosis, likely secondary to above Abdominal pain with nausea and vomiting, likely secondary to assessment #1 History of coronary artery disease History of hypertension Obesity with a BMI of 30 GI prophylaxis DVT prophylaxis Full code Plan: Patient is deemed intermediate risk of postoperative complications from cholecystectomy and patient is willing to proceed with surgery Patient is currently n.p.o. with general surgery following as attending and scheduled to undergo cholecystectomy today. Will await official report and diet to be resumed once cleared by surgery Follow-up with repeat labs and monitor kidney functions and electrolytes Gentle hydration and monitor respiratory status We will continue to follow with general surgery during hospitalization. Thank you kindly for this consultation The impression and plan of care has been dictated by Katerine Baker, Nurse Practitioner as directed. Dr. Leida MD I have performed a history and examination and MDM of this patient, discussed the same with the dictator, and agree with the dictator's assessment and plan as written ,documented as a scribe. Based on total visit time, I have performed more than 50% of the visit. Objective - Vital Signs Vital signs: Vital Signs Temp 99.1 F 07/01/24 07:00 Pulse 72 07/01/24 07:00 Resp 16 07/01/24 07:00 BP 145/66 07/01/24 07:00 Pulse Ox 93 L 07/01/24 07:00 FiO2 Intake & Output 06/30/24 07/01/24 07/01/24 18:59 06:59 18:59 Intake Total 0 Balance 0 Intake: Oral 0 Other: # Voids 3 2 # Bowel Movements 0 - Labs CBC & Chem 7: 07/01/24 03:48 07/01/24 03:48 Labs: Abnormal Lab Results - Last 24 Hours (Table) 06/30/24 07/01/24 07/01/24 Range/Units 04:56 03:48 03:48 WBC 12.11 H 11.2 H (4.50-10.00) X 10*3/uL RBC 4.12 L 3.97 L (4.40-5.60) X 10*6/uL Hgb 12.8 L 12.5 L (13.0-17.0) g/dL Hct 38.8 L 36.5 L (39.6-50.0) % Plt Count 147 L (150-450) k/uL Immature Gran # 0.08 H (0.00-0.04) X 10*3/uL Neutrophils # 9.96 H 9.1 H (1.80-7.70) X 10*3/uL Lymphocytes # 0.71 L 0.8 L (0.90-5.00) X 10*3/uL Monocytes # 1.32 H (0.20-1.00) X 10*3/uL Eosinophils # 0.01 L (0.04-0.35) X 10*3/uL Sodium 135 L (137-145) mmol/L Glucose 117 H (74-99) mg/dL Calcium 7.8 L (8.4-10.2) mg/dL
[2024-07-02 07:17] LABS: Basophils % (A) 0 %; Eosinophils % (A) 0 %; HCT 34.5 % (39.0-53.0); HGB 11.6 gm/dL (13.0-17.5); Lymphocytes # (A) 0.9 k/uL (1.0-4.8); Lymphocytes % (A) 7 %; MCH 30.7 pg (25.0-35.0); MCHC 33.6 g/dL (31.0-37.0); MCV 91.5 fL (80.0-100.0); Mean Platelet Volume 8.4; Monocytes # (A) 0.9 k/uL (0-1.0); Monocytes % (A) 7 %; Neutrophils # (A) 10.7 k/uL (1.3-7.7); Neutrophils % (A) 84 %; Platelet Count 183 k/uL (150-450); RBC 3.77 m/uL (4.30-5.90); RDW 12.9 % (11.5-15.5); WBC 12.7 k/uL (3.8-10.6)
[2024-07-02 07:31] LABS: African American GFR (CKD) >90 (>60 ml/min/1.73 sqM); Anion Gap 6 mmol/L; Blood Urea Nitrogen 15 mg/dL (9-20); Calcium 7.6 mg/dL (8.4-10.2); Carbon Dioxide 24 mmol/L (22-30); Chloride 107 mmol/L (98-107); Glucose 154 mg/dL (74-99); Non-African American GFR(CKD) >90 (>60 ml/min/1.73 sqM); Potassium 3.8 mmol/L (3.5-5.1); Sodium 137 mmol/L (137-145)
[2024-07-02 09:32] VITALS: RESP 16
[2024-07-02 09:34] VITALS: BP 139/76; PULSE 72; TEMP 97.5
--- NOTE | 2024-07-02 12:07 | P.DS ---
Providers Date of admission: 06/29/24 18:42 Expected date of discharge: 07/02/24 Attending physician: Richard Cherry Consults: 06/30/24 08:05 Consult Physician Routine Consulting Provider: Erlinda Pritchett Consult Reason/Comments: medical management Do you want consulting provider notified?: Yes Primary care physician: RONALD CANCINO MD Hospital Course: Discharge diagnosis 1. Gangrenous cholecystitis 2. Atelectasis Hospital course This is a 63-year-old male who presented to the hospital with complaints of nausea vomiting and right upper quadrant abdominal pain for multiple days. He had a gallbladder ultrasound completed that reported distended gallbladder with small pericholecystic fluid and concerns for acalculous cholecystitis. Patient is status post laparoscopic cholecystectomy for gangrenous cholecystitis. Patient tolerated surgery well. His pain is controlled. He is tolerating diet. He is having flatus. He has been up and ambulating. He did have a fever last night of 101. This is likely due to atelectasis. Patient seen and examined by Dr. Cherry and has been cleared for discharge. Patient will be discharged with antibiotics. Patient stable for discharge. Please refer to chart for further details. Physician Electrical Machinist note has been reviewed by physician. Signing provider agrees with the documented findings, assessment, and plan of care. Patient Condition at Discharge: Stable Plan - Discharge Summary New Discharge Prescriptions: New Levofloxacin [Levaquin] 500 mg PO DAILY 10 Days #10 tab Docusate [Colace] 100 mg PO BID #30 capsule metroNIDAZOLE [Flagyl] 500 mg PO TID 10 Days #30 tab HYDROcodone/APAP 5-325MG [Lemitar 5-325] 1 tab PO Q6HR PRN 3 Days #12 tab PRN Reason: Pain Continue Ticagrelor [Brilinta] 90 mg PO BID Metoprolol Tartrate [Lopressor] 50 mg PO BID Losartan Potassium 100 mg PO DAILY Famotidine [Pepcid] 20 mg PO BID amLODIPine [Norvasc] 5 mg PO DAILY Atorvastatin [Lipitor] 40 mg PO DAILY Naproxen [Naprosyn] 500 mg PO BID Discharge Medication List Atorvastatin [Lipitor] 40 mg PO DAILY 06/29/24 [History] Famotidine [Pepcid] 20 mg PO BID 06/29/24 [History] Losartan Potassium 100 mg PO DAILY 06/29/24 [History] Metoprolol Tartrate [Lopressor] 50 mg PO BID 06/29/24 [History] Naproxen [Naprosyn] 500 mg PO BID 06/29/24 [History] Ticagrelor [Brilinta] 90 mg PO BID 06/29/24 [History] amLODIPine [Norvasc] 5 mg PO DAILY 06/29/24 [History] Docusate [Colace] 100 mg PO BID #30 capsule 07/02/24 [Rx] HYDROcodone/APAP 5-325MG [Lemitar 5-325] 1 tab PO Q6HR PRN 3 Days #12 tab 07/02/24 [Rx] Levofloxacin [Levaquin] 500 mg PO DAILY 10 Days #10 tab 07/02/24 [Rx] metroNIDAZOLE [Flagyl] 500 mg PO TID 10 Days #30 tab 07/02/24 [Rx] Follow up Appointment(s)/Referral(s): RONALD CANCINO MD [Primary Care Provider] - 1-2 days Richard Cherry MD [STAFF PHYSICIAN] - 1 Week Activity/Diet/Wound Care/Special Instructions: No driving while taking Lemitar No lifting over 10 pounds Shower daily. No soaking or tub baths for 2 weeks Very light activity until you are reevaluated at your follow up appointment with your surgeon Varinder Iyer tomorrow, 07/03/24 Follow a low fat diet Discharge Disposition: HOME SELF-CARE
--- NOTE | 2024-07-03 08:28 | P.PN ---
Subjective Progress Note Date: 07/02/24 - Reason for Consult Consult date: 06/30/24 Medical management - History of Present Illness History of present illness; patient 63-year-old gentleman who was brought to the ER for abdominal pain. Patient was having abdominal pain for the last few days. Patient has been complain of nausea and vomiting. Patient went to [facility] where he was worked up and later discharged to follow-up outpatient with PCP. Patient continued to have abdominal pain there was no complaint of fever or chills. There was no complaint of lightheadedness dizziness. Patient denies any chest pain or shortness of breath. Because of his abdominal pain, patient came to [facility] Initial lab work done in the ER showed WBC 10.7, hemoglobin 13.8, platelet count 184, sodium 137, potassium 4.3, BUN 16, creatinine 0.85, lactate 2.6, bilirubin 1.5, AST 40, ALT 45 troponin 0.012 Urine negative for infection Ultrasound gallbladder done showed distended gallbladder with small focus of Adalid cholecystic fluid but no gallstones or wall thickening possible acute calculus cholecystitis EKG done in the ER showed heart rate of 74, no ST segment elevation or depression seen, no T-wave inversions seen. Patient admitted to internal medicine service 07/01/2024 Patient is seen in follow-up currently n.p.o. as general surgery plans on cholecystectomy today. Patient remains free of chest pain or shortness of breath. Patient denies nausea or vomiting continues with diffuse abdominal pain at this time. Family at the bedside with questions and concerns answered to the best of her ability. Patient and family speak mostly Scottish. Patient is willing to proceed with surgery and will await official report. Patient continues to have low-grade temps and white count is mildly elevated. Plan to proceed with surgery this afternoon. 07/02/2024 Patient is seen in follow-up this morning status post laparoscopic cholecystectomy with general surgery. Patient was gangrenous and maintained on antibiotics. Patient did have a low-grade temp last night denies any significant shortness of breath, chest pain, or burning with urination. Patient encouraged to use incentive spirometer at least 10 times every hour while awake. Patient remains on antibiotics and general surgery discussing possible discharge today. Patient will continue on antibiotics on discharge and outpatient follow-up. Patient reports to passing gas and tolerating diet with no significant abdominal pain. Mild tenderness noted. Review of systems: Constitutional: No reports of fatigue, fever, or chills Cardiovascular: No reports of chest pain or palpitations Respiratory: No reports of shortness of breath or cough GI: No reports of nausea, vomiting, or diarrhea, reports mild abdominal pain : No reports of dysuria or retention Neurovascular: No reports of weakness or numbness All medications have been reviewed PHYSICAL EXAMINATION: GENERAL: The patient is alert and oriented x3, not in any acute distress. Well developed, well nourished. Language barrier noted HEENT: Pupils are round and equally reacting to light. EOMI. No scleral icterus. No conjunctival pallor. Normocephalic, atraumatic. No pharyngeal erythema. No thyromegaly. CARDIOVASCULAR: S1 and S2 present. No murmurs, rubs, or gallops. PULMONARY: Chest is clear to auscultation, no wheezing or crackles. ABDOMEN: Soft, mildly tender, nondistended, normoactive bowel sounds. No palpable organomegaly. MUSCULOSKELETAL: No joint swelling or deformity. EXTREMITIES: No cyanosis, clubbing, or pedal edema. NEUROLOGICAL: Gross neurological examination did not reveal any focal deficits. SKIN: No rashes. Assessment: Acute acalculous cholecystitis status post laparoscopic cholecystectomy secondary to gangrenous cholecystitis Leukocytosis, likely secondary to above Abdominal pain with nausea and vomiting, likely secondary to assessment #1, improved History of coronary artery disease History of hypertension Obesity with a BMI of 30 GI prophylaxis DVT prophylaxis Full code Plan: Patient is deemed intermediate risk of postoperative complications from cholecystectomy and patient was willing to proceed with surgery, status post laparoscopic cholecystectomy Patient is resumed on diet and tolerating with general surgery following as attending and discussing possible discharge Encourage incentive spirometer use at least 10 times every hour while awake including taking home Continue antibiotics per general surgery and will likely go home on oral antibiotics. Instructed to follow-up with primary care provider as well as general surgery outpatient this week Monitor for any further fevers and call 911 or report to closest ER if having any shortness of breath, chest pain, increased abdominal pain We will continue to follow with general surgery during hospitalization. Thank you kindly for this consultation The impression and plan of care has been dictated by Katerine Baker, Nurse Practitioner as directed. Dr. Leida MD I have performed a history and examination and MDM of this patient, discussed the same with the dictator, and agree with the dictator's assessment and plan as written ,documented as a scribe. Based on total visit time, I have performed more than 50% of the visit. Objective - Vital Signs Vital signs: Vital Signs Temp 97.5 F L 07/02/24 09:30 Pulse 72 07/02/24 09:30 Resp 16 07/02/24 09:30 BP 139/76 07/02/24 09:30 Pulse Ox 93 L 07/02/24 12:08 FiO2 - Labs CBC & Chem 7: 07/02/24 06:58 07/02/24 06:58
== END 2024-07-02 13:55 | disposition home or self-care (01) | DRG 418 ==
LOC: EC 13:01 → 6NMEDSUR 18:42 → OBSVTOIN 07-02 10:31
PROVIDERS: ADMIT Surgery; ATTEND Surgery
PROC: 0FT44ZZ Resection of Gallbladder, Percutaneous Endoscopic Approach (ICD-10-PCS; principal; 2024-07-01 12:25)
DX: K81.0 Acute cholecystitis (principal); J98.11 Atelectasis; K82.A1 Gangrene of gallbladder in cholecystitis; E66.9 Obesity, unspecified; E78.5 Hyperlipidemia, unspecified; I10 Essential (primary) hypertension; I25.10 Atherosclerotic heart disease of native coronary artery without angina pectoris; Z68.30 Body mass index [BMI] 30.0-30.9, adult; Z79.02 Long term (current) use of antithrombotics/antiplatelets; Z79.899 Other long term (current) drug therapy; Z95.1 Presence of aortocoronary bypass graft
CPT/HCPCS: 36415; 71046; 76705; 80048; 80053; 81003; 82150; 83605; 83690; 83880; 84484; 85025; 85610; 85730; 88304; 93005; 96361; 96374; 96375; 99285

== ENCOUNTER 2024-08-29 07:59 | Emergency (ER) | payer MEDICARE ==
[2024-08-29 08:06] VITALS: RESP 20; TEMP 97.6
[2024-08-29 09:25] LABS: Basophils % (A) 1 %; Eosinophils # (A) 0.1 k/uL (0-0.7); Eosinophils % (A) 2 %; HCT 41.4 % (39.0-53.0); HGB 14.1 gm/dL (13.0-17.5); Lymphocytes # (A) 1.3 k/uL (1.0-4.8); Lymphocytes % (A) 24 %; MCH 30.2 pg (25.0-35.0); MCHC 33.9 g/dL (31.0-37.0); Mean Platelet Volume 7.1; Monocytes # (A) 0.3 k/uL (0-1.0); Monocytes % (A) 5 %; Neutrophils # (A) 3.7 k/uL (1.3-7.7); Neutrophils % (A) 67 %; Platelet Count 207 k/uL (150-450); RBC 4.65 m/uL (4.30-5.90); RDW 13.9 % (11.5-15.5); WBC 5.5 k/uL (3.8-10.6)
[2024-08-29 09:34] LABS: ALT 42 U/L (4-49); AST 30 U/L (17-59); African American GFR (CKD) >90 (>60 ml/min/1.73 sqM); Albumin 4.1 g/dL (3.5-5.0); Alkaline Phosphatase 89 U/L (38-126); Anion Gap 10 mmol/L; Blood Urea Nitrogen 18 mg/dL (9-20); Calcium 9.1 mg/dL (8.4-10.2); Carbon Dioxide 26 mmol/L (22-30); Chloride 106 mmol/L (98-107); Glucose 137 mg/dL (74-99); Lipase 133 U/L (23-300); Non-African American GFR(CKD) >90 (>60 ml/min/1.73 sqM); Potassium 3.8 mmol/L (3.5-5.1); Sodium 142 mmol/L (137-145); Total Bilirubin 0.6 mg/dL (0.2-1.3); Total Protein 7.5 g/dL (6.3-8.2)
[2024-08-29 09:46] LABS: Amorphous Sediment,Urine Many /hpf; Appearance,Urine Turbid (Clear); Bilirubin,Urine Negative (Negative); Blood,Urine Negative (Negative); Color,Urine Yellow; Glucose,Urine (UA) Negative (Negative); Ketones,Urine Negative (Negative); Leukocyte Esterase,Urine Negative (Negative); Mucus,Urine Moderate /hpf; Nitrite,Urine Negative (Negative); Protein,Urine Trace (Negative); RBC,Urine 3 /hpf (0-5); Specific Gravity,Urine 1.026 (1.001-1.035); Urobilinogen,Urine <2.0 mg/dL (<2.0); WBC,Urine 1 /hpf (0-5)
--- NOTE | 2024-08-29 09:58 | ED ---
General Adult HPI - General Chief complaint: Back Pain/Injury Stated complaint: Back Pain Time Seen by Provider: 08/29/24 08:05 Source: patient Mode of arrival: ambulatory Limitations: no limitations - History of Present Illness Initial comments: 63-year-old male who presents emergency department reporting right flank pain. States the pain started 3 days ago. He describes it as a cramping sensation. Pain is not reproducible with movement or palpation to the area. He denies any changes in his urination to include dysuria, hematuria or difficulty voiding. Denies diarrhea, constipation, black or bloody stools. Patient did have his gal lbladder removed last year. Son reports that previous to his gallbladder removal he had a positive CAT scan for nodule on his lung. Patient is concerned at this time that his pain is due to that nodule. He has not had any repeat imaging since last year. He denies any fevers. No history of kidney stones. No falls or trauma. No other alleviating, precipitating or modifying factors - Related Data Home Medications Medication Instructions Recorded Confirmed Atorvastatin [Lipitor] 40 mg PO DAILY 06/29/24 06/29/24 Famotidine [Pepcid] 20 mg PO BID 06/29/24 06/29/24 Losartan Potassium 100 mg PO DAILY 06/29/24 06/29/24 Metoprolol Tartrate [Lopressor] 50 mg PO BID 06/29/24 06/29/24 Naproxen [Naprosyn] 500 mg PO BID 06/29/24 06/29/24 Ticagrelor [Brilinta] 90 mg PO BID 06/29/24 06/29/24 amLODIPine [Norvasc] 5 mg PO DAILY 06/29/24 06/29/24 Previous Rx's Medication Instructions Recorded Docusate [Colace] 100 mg PO BID #30 capsule 07/02/24 HYDROcodone/APAP 5-325MG [[place] 1 tab PO Q6HR PRN 3 Days #12 tab 07/02/24 5-325] Levofloxacin [Levaquin] 500 mg PO DAILY 10 Days #10 tab 07/02/24 metroNIDAZOLE [Flagyl] 500 mg PO TID 10 Days #30 tab 07/02/24 Allergies Allergy/AdvReac Type Severity Reaction Status Date / Time No Known Allergies Allergy Verified 06/29/24 19:44 Review of Systems ROS Statement: Those systems with pertinent positive or pertinent negative responses have been documented in the HPI. ROS Other: All systems not noted in ROS Statement are negative. Past Medical History Past Medical History: Coronary Artery Disease (CAD), Chest Pain / Angina, Hyperlipidemia, Hypertension History of Any Multi-Drug Resistant Organisms: None Reported Past Surgical History: Cholecystectomy, Coronary Bypass/CABG Smoking Status: Never smoker Past Alcohol Use History: Occasional Past Drug Use History: None Reported General Exam Limitations: no limitations General appearance: alert, in no apparent distress Head exam: Present: atraumatic, normocephalic, normal inspection Eye exam: Present: normal appearance, PERRL, EOMI. Absent: scleral icterus, conjunctival injection, periorbital swelling ENT exam: Present: normal exam, mucous membranes moist Neck exam: Present: normal inspection. Absent: tenderness, meningismus, lymphadenopathy Respiratory exam: Present: normal lung sounds bilaterally. Absent: respiratory distress, wheezes, rales, rhonchi, stridor Cardiovascular Exam: Present: regular rate, normal rhythm, normal heart sounds. Absent: systolic murmur, diastolic murmur, rubs, gallop, clicks GI/Abdominal exam: Present: soft, normal bowel sounds. Absent: distended, tenderness, guarding, rebound, rigid Extremities exam: Present: normal inspection, full ROM, normal capillary refill. Absent: tenderness, pedal edema, joint swelling, calf tenderness Back exam: Present: normal inspection Neurological exam: Present: alert, oriented X3, CN II-XII intact Psychiatric exam: Present: normal affect, normal mood Skin exam: Present: warm, dry, intact, normal color. Absent: rash Course Vital Signs 08/29/24 08/29/24 08/29/24 08:02 10:23 11:45 Temperature 97.6 F Pulse Rate 60 62 62 Respiratory 20 20 20 Rate Blood Pressure 181/91 131/71 144/87 O2 Sat by Pulse 99 96 97 Oximetry Medical Decision Making - Medical Decision Making Was pt. sent in by a medical professional or institution (, PA, [employer], urgent care, hospital, or long-term...) When possible be specific @ -[No] Did you speak to anyone other than the patient for history (EMS, parent, family, police, friend...)? What history was obtained from this source @ -[No] Did you review nursing and triage notes (agree or disagree)? Why? @ -[I reviewed and agree with nursing and triage notes] Were old charts reviewed (outside hosp., previous admission, EMS record, old EKG, old radiological studies, urgent care reports/EKG's, long-term records)? Report findings @ -[No old charts were reviewed] Differential Diagnosis (chest pain, altered mental status, abdominal pain women, abdominal pain men, vaginal bleeding, weakness, fever, dyspnea, syncope, headache, dizziness, GI bleed, back pain, seizure, CVA, palpatations, mental health, musculoskeletal)? @ -[not applicable] EKG interpreted by me (3pts min.). @ -[As above] X-rays interpreted by me (1pt min.). @ -[None done] CT interpreted by me (1pt min.). @ -[None done] U/S interpreted by me (1pt. min.). @ -[None done] What testing was considered but not performed or refused? (CT, X-rays, U/S, labs)? Why? @ -[None] What meds were considered but not given or refused? Why? @ -[None] Did you discuss the management of the patient with other professionals (professionals i.e. , PA, [employer], lab, RT, psych nurse, social service coordinator, assistant to the dean, teacher, chief development officer, caser shoe parts)? Give summary @ -[No] Was smoking cessation discussed for >3mins.? @ -[No] Was critical care preformed (if so, how long)? @ -[No] Were there social determinants of health that impacted care today? How? (Homelessness, low income, unemployed, alcoholism, drug addiction, transportation, low edu. Level, literacy, decrease access to med. care, mcc, rehab)? @ -[No] Was there de-escalation of care discussed even if they declined (Discuss DNR or withdrawal of care, Hospice)? DNR status @ -[No] What co-morbidities impacted this encounter? (DM, HTN, Smoking, COPD, CAD, Cancer, CVA, ARF, Chemo, Hep., AIDS, mental health diagnosis, sleep apnea, morbid obesity)? @ -[None] Was patient admitted / discharged? Hospital course, mention meds given and route, prescriptions, significant lab abnormalities, going to OR and other pertinent info. @ -[hospital course] Undiagnosed new problem with uncertain prognosis? @ -[No] Drug Therapy requiring intensive monitoring for toxicity (Heparin, Nitro, Insulin, Cardizem)? @ -[No] Were any procedures done? @ -[No] Diagnosis/symptom? @ -[default] Acute, or Chronic, or Acute on Chronic? @ -[default] Uncomplicated (without systemic symptoms) or Complicated (systemic symptoms)? @ -[default] Side effects of treatment? @ -[No] Exacerbation, Progression, or Severe Exacerbation? @ -[No] Poses a threat to life or bodily function? How? (Chest pain, USA, CT, pneumonia, PE, COPD, DKA, ARF, appy, cholecystitis, CVA, Diverticulitis, Homicidal, Suicidal, threat to staff... and all critical care pts) @ -[No] - Lab Data Result diagrams: 08/29/24 08:55 08/29/24 08:55 Lab Results 08/29/24 08/29/24 08/29/24 Range/Units 08:55 08:55 08:55 WBC 5.5 (3.8-10.6) k/uL RBC 4.65 (4.30-5.90) m/uL Hgb 14.1 (13.0-17.5) gm/dL Hct 41.4 (39.0-53.0) % MCV 89.0 (80.0-100.0) fL MCH 30.2 (25.0-35.0) pg MCHC 33.9 (31.0-37.0) g/dL RDW 13.9 (11.5-15.5) % Plt Count 207 (150-450) k/uL MPV 7.1 Neutrophils % 67 % Lymphocytes % 24 % Monocytes % 5 % Eosinophils % 2 % Basophils % 1 % Neutrophils # 3.7 (1.3-7.7) k/uL Lymphocytes # 1.3 (1.0-4.8) k/uL Monocytes # 0.3 (0-1.0) k/uL Eosinophils # 0.1 (0-0.7) k/uL Basophils # 0.0 (0-0.2) k/uL Sodium 142 (137-145) mmol/L Potassium 3.8 (3.5-5.1) mmol/L Chloride 106 (98-107) mmol/L Carbon Dioxide 26 (22-30) mmol/L Anion Gap 10 mmol/L BUN 18 (9-20) mg/dL Creatinine 0.85 (0.66-1.25) mg/dL Est GFR (CKD-EPI)AfAm >90 (>60 ml/min/1.73 sqM) Est GFR (CKD-EPI)NonAf >90 (>60 ml/min/1.73 sqM) Glucose 137 H (74-99) mg/dL Plasma Lactic Acid Jesus Alberto (0.7-2.0) mmol/L Calcium 9.1 (8.4-10.2) mg/dL Total Bilirubin 0.6 (0.2-1.3) mg/dL AST 30 (17-59) U/L ALT 42 (4-49) U/L Alkaline Phosphatase 89 (38-126) U/L Total Protein 7.5 (6.3-8.2) g/dL Albumin 4.1 (3.5-5.0) g/dL Lipase 133 (23-300) U/L Urine Color Yellow Urine Appearance Turbid (Clear) Urine pH 6.0 (5.0-8.0) Ur Specific [place] 1.026 (1.001-1.035) Urine Protein Trace H (Negative) Urine Glucose (UA) Negative (Negative) Urine Ketones Negative (Negative) Urine Blood Negative (Negative) Urine Nitrite Negative (Negative) Urine Bilirubin Negative (Negative) Urine Urobilinogen <2.0 (<2.0) mg/dL Ur Leukocyte Esterase Negative (Negative) Urine RBC 3 (0-5) /hpf Urine WBC 1 (0-5) /hpf Amorphous Sediment Many H (None) /hpf Urine Mucus Moderate H (None) /hpf 08/29/24 Range/Units 08:55 WBC (3.8-10.6) k/uL RBC (4.30-5.90) m/uL Hgb (13.0-17.5) gm/dL Hct (39.0-53.0) % MCV (80.0-100.0) fL MCH (25.0-35.0) pg MCHC (31.0-37.0) g/dL RDW (11.5-15.5) % Plt Count (150-450) k/uL MPV Neutrophils % % Lymphocytes % % Monocytes % % Eosinophils % % Basophils % % Neutrophils # (1.3-7.7) k/uL Lymphocytes # (1.0-4.8) k/uL Monocytes # (0-1.0) k/uL Eosinophils # (0-0.7) k/uL Basophils # (0-0.2) k/uL Sodium (137-145) mmol/L Potassium (3.5-5.1) mmol/L Chloride (98-107) mmol/L Carbon Dioxide (22-30) mmol/L Anion Gap mmol/L BUN (9-20) mg/dL Creatinine (0.66-1.25) mg/dL Est GFR (CKD-EPI)AfAm (>60 ml/min/1.73 sqM) Est GFR (CKD-EPI)NonAf (>60 ml/min/1.73 sqM) Glucose (74-99) mg/dL Plasma Lactic Acid Jesus Alberto 1.7 (0.7-2.0) mmol/L Calcium (8.4-10.2) mg/dL Total Bilirubin (0.2-1.3) mg/dL AST (17-59) U/L ALT (4-49) U/L Alkaline Phosphatase (38-126) U/L Total Protein (6.3-8.2) g/dL Albumin (3.5-5.0) g/dL Lipase (23-300) U/L Urine Color Urine Appearance (Clear) Urine pH (5.0-8.0) Ur Specific [place] (1.001-1.035) Urine Protein (Negative) Urine Glucose (UA) (Negative) Urine Ketones (Negative) Urine Blood (Negative) Urine Nitrite (Negative) Urine Bilirubin (Negative) Urine Urobilinogen (<2.0) mg/dL Ur Leukocyte Esterase (Negative) Urine RBC (0-5) /hpf Urine WBC (0-5) /hpf Amorphous Sediment (None) /hpf Urine Mucus (None) /hpf Disposition Clinical Impression: Flank pain, Lung nodules Disposition: HOME SELF-CARE Condition: Stable Instructions (If sedation given, give patient instructions): Pulmonary Nodules (ED) Additional Instructions: I would like you to follow-up with the lung doctor for further evaluation of the nodule seen on your lungs. I recommend Dr. Prasad or anyone in his office. You may consider having a colonoscopy because of your age. I recommend following with Dr. Dela Cruz for your colonoscopy. Is patient prescribed a controlled substance at d/c from ED?: No Referrals: None,Stated [Primary Care Provider] - 1-2 days Nilda Dela Cruz MD [STAFF PHYSICIAN] - 1-2 days Eduardo Prasad MD [STAFF PHYSICIAN] - 1-2 days Time of Disposition: 11:50
[2024-08-29 10:23] VITALS: PULSE 62
--- NOTE | 2024-08-29 10:37 | CT ---
EXAMINATION TYPE: CT abdomen pelvis w con DATE OF EXAM: 08/29/2024 10:06 AM COMPARISON: None CLINICAL INDICATION: Male, 63 years old with history of abdominal pain; pain TECHNIQUE: Axial CT abdomen pelvis w con;Sagittal and coronal reformats were created on a separate w orkstation. Contrast used:100ml mL of Isovue 300 with IV Contrast, (none if empty) Oral contrast used: without Oral Contrast (none if empty) CT DLP: 930.5 mGycm, Automated exposure control for dose reduction was used. FINDINGS: LOWER CHEST: Innumerable small tiny nodules throughout the lungs. ABDOMEN LIVER: Diffusely hypoattenuating parenchyma. GALLBLADDER AND BILE DUCTS: Unremarkable. PANCREAS: Unremarkable. SPLEEN: Unremarkable. ADRENAL GLANDS: Unremarkable. KIDNEYS AND URETERS: No evidence of hydronephrosis or renal calculus. The ureters are unremarkable. PELVIS BLADDER: No evidence for wall thickening or mass given limitations of exam. REPRODUCTIVE: Unremarkable. ABDOMEN & PELVIS STOMACH AND BOWEL: No evidence of bowel obstruction. Appendix is visualized and normal. Scattered col onic diverticula. PERITONEUM/RETROPERITONEUM: No evidence of pneumoperitoneum or free fluid. VASCULATURE: No evidence of aortic aneurysm. MUSCULOSKELETAL: No acute osseous abnormalities. Mild disc degeneration changes are present throughou t the thoracolumbar spine. Sternotomy wires are present. LYMPH NODES: No gross evidence for lymphadenopathy. SOFT TISSUE/ABDOMINAL WALL: Fat-containing umbilical hernia. IMPRESSION: 1. Few scattered colonic diverticula and no evidence for inflammation. No definitive evidence for ac shine abdominal process. Appendix is normal. No obstructive uropathy or renal calculus. 2. Hepatic steatosis. 3. Colonic diverticulosis. 4. Innumerable tiny nodules throughout the lungs which could represent metastatic disease such as in the setting of thyroid cancer versus miliary tuberculosis versus granulomatous disease. Clinical cor relation advised. Correlation with priors at outside institutions would be of benefit. 5. [facility], , 08/29/2024 10:35 AM
[2024-08-29 11:47] VITALS: BP 144/87
== END 2024-08-29 11:57 | disposition home or self-care (01) ==
LOC: EC 07:59
DX: R10.30 Lower abdominal pain, unspecified (principal); R91.1 Solitary pulmonary nodule
CPT/HCPCS: 36415; 80053; 83605; 83690; 85025; 81001; 74177; 99284; Q9967